=== PATIENT | female | born 1955 | race Caucasian/White ===

== ENCOUNTER 2017-11-18 13:56 | Emergency (ER) | payer SELFPAY ==
[~2017-11-18] VITALS: Ht 157.5 cm; Wt 79.4 kg
[2017-11-18 14:47] VITALS: BP 157/79
--- NOTE | 2017-11-18 14:52 | NUR ---
pt to lobby awaiting room for MSE. MARGO. ARIELA.
--- NOTE | 2017-11-18 17:01 | NUR ---
PATIENT AMBULATED TO BED 10
--- NOTE | 2017-11-18 17:17 | NUR ---
PATIENT PRESENTS TO ED WITH c/o bl lower abd pain since yesterday with n/v; pt reports 3-4 episodes of vomitting; pt denies any diarrhea;PT STATES SHE HAS BURNING SENSATION WHEN SHE PEE W/ URGENCY AND FREQUECY;HX OF HTN;SKIN IS PINK/WARM/DRY; AAOX4 WITH EVEN AND STEADY GAIT; LUNGS CLEAR BL; HR EVEN AND REGULAR; PT DENIES ANY FEVER, CP, SOB, OR COUGH AT THIS TIME; PATIENT STATES PAIN OF 10/10 AT THIS TIME;PATIENT POSITIONED FOR COMFORT; HOB ELEVATED; BEDRAILS UP X2; BED DOWN. ALL MONITORS IN PLACED;ER MD MADE AWARE OF PT STATUS.
[2017-11-18] MEDS ORDERED: KETOROLAC 30 MG/ML VIAL IVP ONE (17:40)
[2017-11-18] MEDS ORDERED: NACL 0.9% 500 ML IV ONE (17:40)
[2017-11-18] MEDS ORDERED: ONDANSETRON 4 MG/2 ML VIAL IVP ONE (17:40)
[2017-11-18 18:17] LABS: BASOPHILS # (AUTO) 0.1 K/uL (0.00-0.22); BASOPHILS % (AUTO) 1.7 % (0.0-2.0); EOSINOPHILS # (AUTO) 0.4 K/uL (0-0.4); EOSINOPHILS % (AUTO) 4.1 % (0.0-4.0); HEMATOCRIT 42.5 % (36-48); LYMPHOCYTES # (AUTO) 1.8 K/uL (2.5-16.5); LYMPHOCYTES % (AUTO) 20.3 % (20.5-51.1); MEAN CORPUSCULAR HEMOGLOBIN 30 pg (27-31); MEAN CORPUSCULAR HGB CONC 33 g/dL (33-37); MEAN CORPUSCULAR VOLUME 90 fL (80-94); MONOCYTES # (AUTO) 0.7 K/uL (0.8-1.0); MONOCYTES % (AUTO) 8.2 % (1.7-9.3); NEUTROPHILS # (AUTO) 5.7 K/uL (1.8-7.7); NEUTROPHILS % (AUTO) 65.7 % (42.2-75.2); PLATELET COUNT (AUTO) 358 K/uL (140-450); RED BLOOD CELL COUNT(AUTO) 4.74 MIL/uL (4.20-5.40); RED CELL DISTRIBUTION WIDTH 12.7 % (11.6-13.7); WHITE BLOOD COUNT (AUTO) 8.7 K/uL (4.8-10.8)
[2017-11-18 18:27] LABS: CARBON DIOXIDE 33.4 mmol/L (21-32); CREATININE 0.9 mg/dL (0.6-1.3); POTASSIUM 3.4 mmol/L (3.5-5.1)
[2017-11-18 18:33] LABS: ALBUMIN 4.3 g/dL (3.4-5.0); TOTAL BILIRUBIN 0.2 mg/dL (0.0-1.0)
[2017-11-18 18:47] LABS: PROTHROMBIN TIME 10.1 secs (10.8-13.4)
[2017-11-18] MEDS ORDERED: MORPHINE SULFATE 2 MG/ML SYR IVP ONE (18:55)
[2017-11-18 19:33] VITALS: BP 133/64
--- NOTE | 2017-11-18 19:33 | NUR ---
Patient discharged with v/s stable. Written and verbal after care instructions given and explained. Patient alert, oriented and verbalized understanding of instructions. Ambulatory with steady gait. All questions addressed prior to discharge. ID band removed. Patient advised to follow up with PMD. Rx of MOTRIN AND TRAMADOL given. Patient educated on indication of medication including possible reaction and side effects. Opportunity to ask questions provided and answered.
== END 2017-11-18 19:33 | disposition home or self-care (01) ==
LOC: MED 13:56
DX: K57.90 Diverticulosis of intestine, part unspecified, without perforation or abscess without bleeding (principal); I10 Essential (primary) hypertension
CPT/HCPCS: 36415; 74176; 80053; 85025; 85610; 85730; 96361; 96374; 96375; 99285; J1885; J2270; J2405; J7030

== ENCOUNTER 2020-01-03 04:31 | Inpatient (IN) | payer MEDICAID ==
[~2020-01-03] VITALS: Ht 154.9 cm; Wt 61.7 kg
[2020-01-03 04:35] VITALS: BP 155/84
--- NOTE | 2020-01-03 04:35 | NUR ---
TO BED #05 AMBULATORY
[2020-01-03] MEDS ORDERED: NACL 0.9% 500 ML IV SCH (05:01)
[2020-01-03] MEDS ORDERED: ONDANSETRON 4 MG/2 ML VIAL IVP ONE (05:05)
[2020-01-03] MEDS ORDERED: KETOROLAC 30 MG/ML VIAL IVP ONE (05:05)
[2020-01-03] MEDS ORDERED: MORPHINE SULFATE 2 MG/ML SYR IVP ONE (05:40)
--- NOTE | 2020-01-03 05:40 | NUR ---
PATIENT STILL STATING SEVERE HEAD PAIN AFTER TORADOL. DR. SHABAZZ MADE AWARE
--- NOTE | 2020-01-03 05:41 | NUR ---
BIB SON REPORTING HEADACHE FOR 1 WEEK WITH ABD PAIN, NAUSEA AND VOMITING. ABD SOFT AND NON-TENDER. NO COUGH REPORTED. LUNG SOUND CLEAR BILATERALLY. NO OTHER SYMPTOMS REPORTED. PATIENT AAO, CLEAR SPEECH, PUPILS EQUAL AND REACTIVE. HX: HTN-COMPLIANT WITH MEDICATION
[2020-01-03 05:58] LABS: APPEARANCE,URINE CLEAR (CLEAR); BILIRUBIN,URINE NEGATIVE (NEGATIVE); BLOOD, URINE NEGATIVE (NEGATIVE); COLOR,URINE YELLOW (YELLOW); LEUKOCYTE ESTERASE ,URINE NEGATIVE (NEGATIVE); NITRITE, URINE NEGATIVE (NEGATIVE); UGLUCOSE NEGATIVE (NEGATIVE)
[2020-01-03 05:59] LABS: ALBUMIN 3.9 g/dL (3.4-5.0); CARBON DIOXIDE 29.4 mmol/L (21-32); CREATININE 0.8 mg/dL (0.6-1.3); POTASSIUM 3.4 mmol/L (3.5-5.1); TOTAL BILIRUBIN 0.4 mg/dL (0.0-1.0)
[2020-01-03] MEDS ORDERED: diphenhydrAMINE 50 MG/ML VIAL IVP ONE (06:05)
[2020-01-03] MEDS ORDERED: PROCHLORPERAZINE 10 MG/2 ML VIAL IVP ONE (06:05)
[2020-01-03 06:10] LABS: BASOPHILS % (AUTO) 0.3 % (0.0-2.0); EOSINOPHILS # (AUTO) 0.1 K/uL (0-0.4); EOSINOPHILS % (AUTO) 1.2 % (0.0-4.0); HEMATOCRIT 36.8 % (36-48); HEMOGLOBIN 12.3 g/dL (12.0-16.0); LYMPHOCYTES # (AUTO) 1.4 K/uL (2.5-16.5); LYMPHOCYTES % (AUTO) 15.3 % (20.5-51.1); MEAN CORPUSCULAR HEMOGLOBIN 30 pg (27-31); MEAN CORPUSCULAR HGB CONC 33 g/dL (33-37); MEAN CORPUSCULAR VOLUME 90.5 fL (80-94); MONOCYTES # (AUTO) 0.4 K/uL (0.8-1.0); MONOCYTES % (AUTO) 4.6 % (1.7-9.3); NEUTROPHILS # (AUTO) 7.1 K/uL (1.8-7.7); NEUTROPHILS % (AUTO) 78.6 % (42.2-75.2); PLATELET COUNT (AUTO) 329 K/uL (140-450); PROTHROMBIN TIME 9.5 secs (10.8-13.4); RED BLOOD CELL COUNT(AUTO) 4.07 MIL/uL (4.20-5.40); RED CELL DISTRIBUTION WIDTH 13.5 % (11.6-13.7); WHITE BLOOD COUNT (AUTO) 9.1 K/uL (4.8-10.8)
[2020-01-03] MEDS ORDERED: LEVOFLOXACIN 500 MG/D5W PREMIX 100 ML IV ONE (07:49)
[2020-01-03] MEDS ORDERED: NACL 0.9% 1,000 ML IV SCH (10:43)
[2020-01-03] MEDS ORDERED: ACETAMINOPHEN 325 MG TAB PO PRN (10:45)
[2020-01-03] MEDS ORDERED: MORPHINE SULFATE 2 MG/ML SYR IVP PRN (10:45)
[2020-01-03] MEDS ORDERED: ONDANSETRON 4 MG/2 ML VIAL IM/IVP PRN (10:45)
[2020-01-03] MEDS ORDERED: DOCUSATE SODIUM 100 MG GELCAP PO PRN (10:45)
[2020-01-03] MEDS ORDERED: ALBUTEROL SULFATE/IPRATROPIU 3 ML SOL IH PRN (10:45)
--- NOTE | 2020-01-03 10:50 | NUR ---
Pt admitted to room 106B from ED via gurney. Able to amb to bed with steady gait. Received report from ED nurse Tramaine. Pt chilean speaking, requested to have son Danielito at bedside to translate chilean/libyan. Son able to speak and comprehend Setswana well. Left AC 20G IV intact with ongoing NS @ 120ml/h. Pt and son oriented to room and unit, able to verbalize understanding of teachings. Call light within reach.
--- NOTE | 2020-01-03 10:57 | NUR ---
Patient will be admitted to care of DR WONG. Admited to [facility]. Will go to room 106B. Belongings list completed. Report to EKATERINA VASQUES.
[2020-01-03] MEDS ORDERED: LACTULOSE 20 GM/30 ML UDC PO SCH (11:43)
[2020-01-03] MEDS: ALBUTEROL SULFATE/IPRATROPIU 3 ML SOL IH SCH ×2 (13:00→19:00)
[2020-01-03] MEDS: AZITHROMYCIN 250 MG in DEXTROSE 5% 250 ML IV SCH (13:32)
--- NOTE | 2020-01-03 13:45 | NUR ---
Received call from [employer] to confirm NPO status of pt. Informed tech that pt finished her lunch around 1330. Will keep pt NPO and tech to do NM Hida scan @ [phone] tonight. Instructed pt to remain NPO for Hida scan. Pt verbalized understanding and agree to be NPO.
[2020-01-03 15:27] LABS: CHOL/HDL RATIO 2.3 (1-4.5); FREE T4 (FREE THYROXINE) 1.23 ng/dL (0.76-1.46); MAGNESIUM 1.8 mg/dL (1.8-2.4); PHOSPHORUS 2.8 mg/dL (2.5-4.9); THYROID STIMULATING HORMONE 2.01 uIU/mL (0.34-3.74)
[2020-01-03 16:00] VITALS: BP 124/60
[2020-01-03] MEDS ORDERED: LACTULOSE 20 GM/30 ML UDC ONE (16:11)
[2020-01-03] MEDS: DEXT 5% / NACL 0.45% 1,000 ML IV SCH (16:15)
[2020-01-03] MEDS ORDERED: ORE25 PO (16:26)
[2020-01-03 16:41] LABS: PROTHROMBIN TIME 10.2 secs (10.8-13.4)
--- NOTE | 2020-01-03 18:00 | NUR ---
Pt left unit with NE tech for Hida scan, accompanied by fanny Esteves.
--- NOTE | 2020-01-03 19:05 | NUR ---
Report given to pm nurse Alma. Pt still at radiology for Hida scan.
--- NOTE | 2020-01-03 19:06 | NUR ---
RECEIVED REPORT FROM AM SHIFT NURSE CAPRICE. PATIENT IS OUT OF UNIT AT THIS TIME FOR HIDA SCAN.
--- NOTE | 2020-01-03 19:33 | NUR ---
HHN TX NOT GIVEN. PT IS OFF UNIT FOR TESTING. RN AWARE.
--- NOTE | 2020-01-03 19:48 | NUR ---
PATIENT RETURNED TO UNIT AT THIS TIME FROM HIDA SCAN VIA WHEELCHAIR. ASSISTED BY GABINO. PATIENT IS AMBULATORY. NO SOB OR DISTRESS NOTED. ON ROOM AIR. IV ACCESS ON LEFT AC 20 GAUGE, PATENT AND INTACT. BED IN LOW, SAFETY MEASURES IN PLACE. BOARD UPDATED. INITIAL ASSESSMENT DONE. CALL LIGHT PLACED WITHIN PATIENT REACH. WILL CONTINUE TO MONITOR PATIENT.
[2020-01-03] MEDS ORDERED: ATORVASTATIN 20 MG TAB PO SCH (21:00)
[2020-01-03] MEDS: HYDROcodone/APAP 7.5/325 MG 1 TAB PO PRN (21:14)
--- NOTE | 2020-01-03 22:12 | NUR ---
PATIENT RESTING COMFORTABLY IN BED WITH EYES CLOSED. VISIBLE CHEST RISE AND FALL. NO DISTRESS NOTED. CALL LIGHT PLACED WITHIN PATIENT REACH. ENDORSED TO ABE TOBAR FOR CONTINUITY OF CARE.
--- NOTE | 2020-01-03 22:13 | NUR ---
RECEIVED REPORT FROM CHETNA TOBAR. PATIENT IS AWAKE, ALERT, AND COOPERATIVE. RESPIRATION EVEN UNLABORED ON ROOM AIR. NO DISTRESS NOTED. SKIN IS WARM AND DRY. IV PATENT AND INTACT. PLAN OF CARE WAS DISCUSSED. ALL SAFETY MEASURES IN PLACE. BED IS AT LOW POSITION. CALL LIGHT WITHIN REACH. WILL CONTINUE TO MONITOR.
[2020-01-04] VITALS: BP 99/40
--- NOTE | 2020-01-04 | NUR ---
VITALS WERE TAKEN. PATIENT IN STABLE CONDITION. NO DISTRESS NOTED. WILL CONTINUE TO MONITOR.
--- NOTE | 2020-01-04 02:18 | NUR ---
CHECKED PATIENT. PATIENT SLEEPING RESPIRATION EVEN UNLABORED ON ROOM AIR. NO DISTRESS NOTED. WILL CONTINUE TO MONITOR.
[2020-01-04 04:00] VITALS: BP 117/59
--- NOTE | 2020-01-04 04:10 | NUR ---
VITALS WERE TAKEN. PATIENT IN STABLE CONDITION. NO DISTRESS NOTED. DENIES PAIN. WILL CONTINUE TO MONITOR.
[2020-01-04] MEDS: DEXT 5% / NACL 0.45% 1,000 ML IV SCH (04:19)
[2020-01-04 04:25] LABS: BARBITURATE, URINE NEG. ng/ml (NEG <=200); BENZODIAZEPINE, URINE NEG. ng/mL (NEG <=200); CANNABINOID, URINE NEG. ng/mL (NEG <=50); COCAINE, URINE NEG. ng/mL (NEG <=300); OPIATE, URINE POS. ng/mL (NEG <=2000); PHENCYCLIDINE SCREEN,URINE NEG. ng/mL (NEG <=25)
--- NOTE | 2020-01-04 06:45 | NUR ---
PATIENT COMPLAINED OF HEADACHE 6/. PRN PAIN MED ADMINISTER PER ORDER. WILL CONTINUE TO MONITOR.
[2020-01-04] MEDS: HYDROcodone/APAP 7.5/325 MG 1 TAB PO PRN (06:48)
[2020-01-04 07:01] LABS: BASOPHILS % (AUTO) 0.3 % (0.0-2.0); EOSINOPHILS # (AUTO) 0.3 K/uL (0-0.4); EOSINOPHILS % (AUTO) 3.1 % (0.0-4.0); HEMATOCRIT 34.4 % (36-48); HEMOGLOBIN 11.2 g/dL (12.0-16.0); LYMPHOCYTES # (AUTO) 1.7 K/uL (2.5-16.5); LYMPHOCYTES % (AUTO) 20.3 % (20.5-51.1); MEAN CORPUSCULAR HEMOGLOBIN 30 pg (27-31); MEAN CORPUSCULAR HGB CONC 33 g/dL (33-37); MEAN CORPUSCULAR VOLUME 92.1 fL (80-94); MONOCYTES # (AUTO) 0.5 K/uL (0.8-1.0); MONOCYTES % (AUTO) 6.5 % (1.7-9.3); NEUTROPHILS # (AUTO) 5.8 K/uL (1.8-7.7); NEUTROPHILS % (AUTO) 69.8 % (42.2-75.2); PLATELET COUNT (AUTO) 289 K/uL (140-450); RED BLOOD CELL COUNT(AUTO) 3.74 MIL/uL (4.20-5.40); RED CELL DISTRIBUTION WIDTH 13.6 % (11.6-13.7); WHITE BLOOD COUNT (AUTO) 8.3 K/uL (4.8-10.8)
--- NOTE | 2020-01-04 07:04 | NUR ---
ENDORSED PATIENT TO DAY SHIFT NURSE. PATIENT IS IN STABLE CONDITION.
--- NOTE | 2020-01-04 07:30 | NUR ---
SHIFT REPORT RECEIVED FROM COACH OPERATOR NURSE. PT IS IN BED ALERT AND AWAKE. NO COMPLAINS OF PAIN. CALL LIGHT IN REACH.
[2020-01-04] MEDS: ALBUTEROL SULFATE/IPRATROPIU 3 ML SOL IH SCH ×2 (07:32→13:10)
[2020-01-04 07:36] LABS: POTASSIUM 3.4 mmol/L (3.5-5.1)
[2020-01-04 07:37] LABS: ANION GAP 10.5 (8-16); CARBON DIOXIDE 29.9 mmol/L (21-32); CREATININE 0.8 mg/dL (0.6-1.3)
--- NOTE | 2020-01-04 07:45 | NUR ---
NOTIFIED DR LOCKHART OF LAB RESULTS GRAM POSITIVE COCCI OF BLOOD. PER DR LOCKHART IT MUST BE CONTAMINATED. NO NEED TO CHANGE ROOM. PT IS ON ANTIBIOTICS. NOTIFIED CHARGE NURSE.
[2020-01-04 08:00] VITALS: BP 129/65
--- NOTE | 2020-01-04 08:24 | NUR ---
PATIENT HAS BEEN SCREENED AND CATEGORIZED MODERATE NUTRITION RISK. PATIENT WILL BE SEEN WITHIN 3-5 DAYS OF ADMISSION. 01/05/20 01/07/[address]
[2020-01-04] MEDS ORDERED: LACTOBACILLUS RHAMNOSUS GG 1 EACH CAP PO SCH (09:00)
[2020-01-04] MEDS ORDERED: POTASSIUM CHLORIDE 10 MEQ TABER PO SCH (09:00)
[2020-01-04] MEDS ORDERED: ECOTRIN 81 MG TABEC PO SCH (09:00)
--- NOTE | 2020-01-04 09:21 | NUR ---
SPOKE WITH KAELA POWERHOUSE OPERATOR HE STATED SPOKE WITH DR. DELACRUZ HE STATED THE PATIENTS 0930 PROCEDURE HAS BEEN PLACED ON HOLD. WE ARE UNSURE OF WHY AT THIS TIME. WILL SPEAK WILL PATIENTS NURSE AND PT TO NOTIFY OF CHANGE PLAN
--- NOTE | 2020-01-04 09:30 | NUR ---
PT IS IN BED ALERT AND WAKE. NO COMPLAINS OF PAIN.NO DISTRESS NOTED. CALL LIGHT IN REACH.
[2020-01-04] MEDS ORDERED: INUL1CTB PO (10:13)
[2020-01-04] MEDS ORDERED: AMOX1TAB8 PO (10:13)
[2020-01-04] MEDS ORDERED: ATOR20TA PO (10:13)
[2020-01-04] MEDS ORDERED: ASPI-1718 PO (10:13)
--- NOTE | 2020-01-04 11:55 | NUR ---
PT IS IN BED ALERT AND WAKE. NO COMPLAINS OF PAIN.NO DISTRESS NOTED. CALL LIGHT IN REACH.
[2020-01-04 12:00] VITALS: BP 129/51
[2020-01-04] MEDS: AZITHROMYCIN 250 MG in DEXTROSE 5% 250 ML IV SCH (12:27)
--- NOTE | 2020-01-04 15:03 | NUR ---
PT WAS DISCHARGED TODAY. DISCHARGE INSTRUCTIONS GIVEN TO PATIENT. PT WILL FOLLOW UP WITH PCP AT [facility] ON THE OF THIS MONTH. APPOINTMENT SCHEDULE GIVEN TO PATIENT. PRESCRIPTION SENT TO PHARMACY. SKIN IN TACT. PT STABLE AT DISCHARGE. NO COMPLAINS OF PAIN. PT WALKED WITH STEADY GAIT HOWEVER PT WAS TAKEN IN WHEELCHAIR TO HER CAR ACCOMPANIED BY HER SON. IV REMOVED. CATHETER INTACT. ID BAND REMOVED. PT'S BELONGINGS WITH PATIENT.
[2020-01-04 16:09] LABS: T4 (THYROXINE) 8.6 ug/dL (4.5-12.0)
== END 2020-01-04 15:05 | disposition home or self-care (01) | DRG 46 ==
LOC: MED 04:31 → MTU 10:54
PROVIDERS: ADMIT General Practice; ATTEND General Practice
PROC: 05HY33Z Insertion of Infusion Device into Upper Vein, Percutaneous Approach (ICD-10-PCS; principal; 2020-01-03)
PROC: B54NZZA Ultrasonography of Left Upper Extremity Veins, Guidance (ICD-10-PCS; 2020-01-03)
DX: I65.21 Occlusion and stenosis of right carotid artery (principal); J18.9 Pneumonia, unspecified organism; K76.0 Fatty (change of) liver, not elsewhere classified; K80.20 Calculus of gallbladder without cholecystitis without obstruction; G90.8 Other disorders of autonomic nervous system; E66.3 Overweight; I10 Essential (primary) hypertension; K82.8 Other specified diseases of gallbladder; E87.6 Hypokalemia; K42.9 Umbilical hernia without obstruction or gangrene; Z82.49 Family history of ischemic heart disease and other diseases of the circulatory system; Z82.3 Family history of stroke; Z68.25 Body mass index [BMI] 25.0-25.9, adult
CPT/HCPCS: 36415; 70450; 71045; 76705; 78445; 80048; 80053; 80305; 81003; 82150; 83036; 83605; 83690; 83735; 83880; 84100; 84436; 84439; 84443; 84479; 84484; 85025; 85610; 85730; 87040; 87086; 87804; 93005; 93880; 94640; 96374; 96375; 97110; 97116; 97161-GP; 97530; 99285; J0456; J0696; J1885; J1956; J2270; J2405; J7060; J7620; Q0092

== ENCOUNTER 2020-01-14 19:31 | Inpatient (IN) | payer MEDICAID ==
[~2020-01-14] VITALS: Ht 160 cm; Wt 85.7 kg
[2020-01-14] MEDS: NACL 0.9% 1,000 ML IV SCH
[~2020-01-14 19:31] MED LIST: AMOX1TAB8 PO; ASPI-1822 PO; ATOR20TA PO; INUL1CTB PO; ORE25 PO
[2020-01-14 19:33] VITALS: BP 149/52
--- NOTE | 2020-01-14 19:33 | NUR ---
TO BED # 11 AMBULATORY
--- NOTE | 2020-01-14 20:00 | NUR ---
PT VOMITING AT BEDSIDE. 30 ML CLEAR BILE NOTED TO EMESIS BAG. DR. MA MADE AWARE.
[2020-01-14] MEDS ORDERED: ONDANSETRON 4 MG/2 ML VIAL IVP ONE (20:15)
[2020-01-14] MEDS ORDERED: FAMOTIDINE 20 MG/2 ML VIAL IVP ONE (20:15)
[2020-01-14] MEDS ORDERED: NACL 0.9% 1,000 ML IV ONE (20:15)
--- NOTE | 2020-01-14 20:30 | NUR ---
LABS DRAWN AT BEDSIDE BY PRIMARY RN.
--- NOTE | 2020-01-14 20:40 | NUR ---
ADMINISTERED 20 MG IVP PEPCID AND 4 MG IVP ZOFRAN FOR N/V AND 10/10 LOWER ABD PAIN. WILL REASSESS.
--- NOTE | 2020-01-14 21:00 | NUR ---
PT REPORTS MODERATE PAIN RELIEF; 6/10. REPORTS RELIEF OF N/V.
[2020-01-14 21:24] LABS: BASOPHILS # (AUTO) 0.1 K/uL (0.00-0.22); BASOPHILS % (AUTO) 0.7 % (0.0-2.0); EOSINOPHILS # (AUTO) 0.5 K/uL (0-0.4); EOSINOPHILS % (AUTO) 5.6 % (0.0-4.0); HEMATOCRIT 37.3 % (36-48); HEMOGLOBIN 12.3 g/dL (12.0-16.0); LYMPHOCYTES # (AUTO) 2.1 K/uL (2.5-16.5); LYMPHOCYTES % (AUTO) 21.5 % (20.5-51.1); MEAN CORPUSCULAR HEMOGLOBIN 30 pg (27-31); MEAN CORPUSCULAR HGB CONC 33 g/dL (33-37); MEAN CORPUSCULAR VOLUME 90.4 fL (80-94); MONOCYTES # (AUTO) 0.7 K/uL (0.8-1.0); MONOCYTES % (AUTO) 7.5 % (1.7-9.3); NEUTROPHILS # (AUTO) 6.3 K/uL (1.8-7.7); NEUTROPHILS % (AUTO) 64.7 % (42.2-75.2); PLATELET COUNT (AUTO) 324 K/uL (140-450); RED BLOOD CELL COUNT(AUTO) 4.12 MIL/uL (4.20-5.40); RED CELL DISTRIBUTION WIDTH 13.8 % (11.6-13.7); WHITE BLOOD COUNT (AUTO) 9.7 K/uL (4.8-10.8)
[2020-01-14 21:39] LABS: ANION GAP 9.7 (8-16); CARBON DIOXIDE 30.5 mmol/L (21-32); CREATININE 0.7 mg/dL (0.6-1.3); POTASSIUM 4.2 mmol/L (3.5-5.1); TOTAL BILIRUBIN 0.2 mg/dL (0.0-1.0)
[2020-01-14] MEDS ORDERED: fentaNYL 0.05 MG/ML VIAL IM ONE (21:45)
--- NOTE | 2020-01-14 21:55 | NUR ---
MEDICATED WITH 0.05 MG IVP FENTANYL FOR 7/10 LOWER ABD PAIN. WILL REASSESS.
--- NOTE | 2020-01-14 22:15 | NUR ---
PT REPORTS MODERATE PAIN RELIEF; 6/10. PT RESTING WITH VSS AND EYES CLOSED. AROUSABLE TO VERBAL STIMULI.
[2020-01-14 22:32] LABS: APPEARANCE,URINE CLEAR (CLEAR); BILIRUBIN,URINE NEGATIVE (NEGATIVE); BLOOD, URINE 2+ (NEGATIVE); COLOR,URINE YELLOW (YELLOW); LEUKOCYTE ESTERASE ,URINE 1+ (NEGATIVE); NITRITE, URINE NEGATIVE (NEGATIVE); UGLUCOSE NEGATIVE (NEGATIVE)
[2020-01-14 23:05] LABS: RBC,URINE 0-5 /HPF (0-5); YEAST,URINE Few /HPF (None Seen)
[2020-01-14] MEDS ORDERED: DOCUSATE SODIUM 100 MG GELCAP PO PRN (23:05)
[2020-01-14] MEDS ORDERED: HYDROcodone/APAP 5/325 MG 1 TAB TAB PO PRN (23:05)
[2020-01-14] MEDS ORDERED: ACETAMINOPHEN 325 MG TAB PO PRN (23:05)
[2020-01-14] MEDS ORDERED: MORPHINE SULFATE 2 MG/ML SYR IVP PRN (23:05)
[2020-01-14] MEDS ORDERED: ONDANSETRON 4 MG/2 ML VIAL IM/IVP PRN (23:05)
--- NOTE | 2020-01-14 23:05 | NUR ---
PT RESTING IN BED. REPORTS "SEVERE PAIN", 09/01. DR. VELARDE MADE AWARE.
[2020-01-14] MEDS: DOCUSATE SODIUM 100 MG GELCAP PO SCH (23:45)
[2020-01-14] MEDS ORDERED: FLUCONAZOLE 100 MG TAB PO ONE (23:45)
[2020-01-14] MEDS ORDERED: BISACODYL 10 MG SUPP RC ONE (23:45)
[2020-01-14] MEDS ORDERED: MAG SULF 2000 MG/WATER PREMIX 50 ML IV ONE (23:45)
--- NOTE | 2020-01-14 23:54 | NUR ---
RECEIVED PATIENT FROM ER VIA WHEELCHAIR. PATIENT IS OCCITAN SPEAKING ONLY. RESPIRATIONS EVEN, UNLABORED. PATIENT C/O MILD PAIN 2/10, TOLERABLE AT THIS TIME. IV SITE NOTED TO LEFT AC 20G, PATENT/INTACT. ABDOMEN SOFT, TENDER UPON PALPATION. BOWEL SOUNDS ACTIVE X4 QUADRANTS. PATIENT IS AMBULATORY. SKIN ASSESSMENT COMPLETE. SKIN IS CLEAN/DRY/INTACT. MRSA SCREEN COMPLETED. PATIENT ORIENTED TO ROOM, STAFF AND CALL LIGHT. NO S/SX ACUTE DISTRESS NOTED. CALL LIGHT WITHIN REACH. WILL CONTINUE TO MONITOR.
--- NOTE | 2020-01-14 23:55 | NUR ---
Patient will be admitted to care of . Admited to [facility]. Will go to room 105B. Belongings list completed. Report to EKATERINA Dowd.
[2020-01-14 23:57] LABS: BARBITURATE, URINE NEG. ng/ml (NEG <=200); BENZODIAZEPINE, URINE NEG. ng/mL (NEG <=200); CANNABINOID, URINE NEG. ng/mL (NEG <=50); COCAINE, URINE NEG. ng/mL (NEG <=300); OPIATE, URINE NEG. ng/mL (NEG <=2000); PHENCYCLIDINE SCREEN,URINE NEG. ng/mL (NEG <=25)
[2020-01-15 00:01] LABS: CHOL/HDL RATIO 3.4 (1-4.5); MAGNESIUM 1.7 mg/dL (1.8-2.4); PHOSPHORUS 3.3 mg/dL (2.5-4.9)
--- NOTE | 2020-01-15 00:15 | NUR ---
PT CHECKED ON THE BM; STILL NOT CLEAR. PT AMBULATING WELL TO THE BATHROOM STEADY GAIT Addendum: 01/16/20 at 0656 by Shyanne Helm RN KING OLSEN
[2020-01-15 00:20] LABS: PROTHROMBIN TIME 9.7 secs (10.8-13.4)
--- NOTE | 2020-01-15 00:34 | NUR ---
SPOKE TO DAUGHTER JUAN ON THE PHONE ABOUT HER MOTHER'S CONDITION. DAUGHTER SAID THAT SHE WOULD BE VISITING IN THE MORNING TO SEE HER MOM. RELAYED MESSAGE TO PATIENT. PATIENT IS IN BED, COMFORTABLY. NO C/O PAIN. NO S/SX ACUTE DISTRESS. CALL LIGHT WITHIN REACH. WILL CONTINUE TO MONITOR.
--- NOTE | 2020-01-15 01:26 | NUR ---
PATIENT RESTING COMFORTABLY IN BED. NO C/O PAIN. NO S/SX ACUTE DISTRESS. CALL LIGHT WITHIN REACH. WILL CONTINUE TO MONITOR.
[2020-01-15 01:48] VITALS: BP 134/74
[2020-01-15] MEDS ORDERED: cefTRIAXone 1,000 MG VIAL ONE (03:11)
--- NOTE | 2020-01-15 03:32 | NUR ---
PATIENT RESTING IN BED WITH EYES CLOSED. CONTINUES IN STABLE CONDITION. NO C/O PAIN. NO S/SX ACUTE DISTRESS. CALL LIGHT WITHIN REACH. WILL CONTINUE TO MONITOR.
--- NOTE | 2020-01-15 04:31 | NUR ---
PATIENT C/O 5/10 ACHING ABDOMINAL PAIN WITH HEADACHE. MEDICATED ORDERED. CALL LIGHT WITHIN REACH. WILL CONTINUE TO MONITOR.
--- NOTE | 2020-01-15 05:31 | NUR ---
REASSESSED PATIENT'S PAIN LEVEL, PATIENT DENIES ANY PAIN. NO S/SX ACUTE DISTRESS. CALL LIGHT WITHIN REACH. WILL CONTINUE TO MONITOR.
--- NOTE | 2020-01-15 07:15 | NUR ---
RECEIVED BEDSIDE REPORT FROM DRIVE IN THEATER ATTENDANT NURSE, PT IS ASLEEP, NO S/S OF DISTRESS NOTED, ON ROOM AIR, SKIN INTACT. PT IS AMBULATORY. OCCITAN SPEAKING ONLY. IV SITE L AC 20 G INFUSING NS 60 ML/HR. PT IS AWARE THAT WE NEED A STOOL SAMPLE FOR OCCULT BLOOD, AND HAT IS ON THE TOILET. CALL LIGHT IS WITHIN REACH. WILL CONTINUE TO MONITOR.
[2020-01-15 08:00] VITALS: BP 131/60
[2020-01-15 08:30] LABS: BASOPHILS % (AUTO) 0.5 % (0.0-2.0); EOSINOPHILS # (AUTO) 0.4 K/uL (0-0.4); HEMATOCRIT 34.6 % (36-48); HEMOGLOBIN 11.5 g/dL (12.0-16.0); LYMPHOCYTES # (AUTO) 1.5 K/uL (2.5-16.5); MEAN CORPUSCULAR HEMOGLOBIN 30 pg (27-31); MEAN CORPUSCULAR HGB CONC 33 g/dL (33-37); MEAN CORPUSCULAR VOLUME 89.4 fL (80-94); MONOCYTES # (AUTO) 0.4 K/uL (0.8-1.0); MONOCYTES % (AUTO) 5.8 % (1.7-9.3); NEUTROPHILS # (AUTO) 4.1 K/uL (1.8-7.7); NEUTROPHILS % (AUTO) 63.7 % (42.2-75.2); PLATELET COUNT (AUTO) 287 K/uL (140-450); RED BLOOD CELL COUNT(AUTO) 3.87 MIL/uL (4.20-5.40); RED CELL DISTRIBUTION WIDTH 14.1 % (11.6-13.7); WHITE BLOOD COUNT (AUTO) 6.4 K/uL (4.8-10.8)
[2020-01-15] MEDS: DOCUSATE SODIUM 100 MG GELCAP PO SCH ×2 (08:53→21:26)
[2020-01-15 08:54] LABS: ANION GAP 12.1 (8-16); CREATININE 0.9 mg/dL (0.6-1.3); POTASSIUM 4.1 mmol/L (3.5-5.1)
[2020-01-15] MEDS: LACTOBACILLUS RHAMNOSUS GG 1 EACH CAP PO SCH (08:54)
[2020-01-15] MEDS: HYDROCHLOROTHIAZIDE 25 MG TAB PO SCH (08:54)
[2020-01-15] MEDS: PANTOPRAZOLE 40 MG INJ VIAL IVP SCH (08:54)
[2020-01-15 08:58] LABS: MAGNESIUM 2.4 mg/dL (1.8-2.4); PHOSPHORUS 2.9 mg/dL (2.5-4.9)
--- NOTE | 2020-01-15 09:00 | NUR ---
AM MEDS ADMINISTERED, PT TOLERATED WELL. ADMINISTERED PRN TYLENOL FOR C/O HEADACHE. WILL REASSESS PT WITHIN AN HOUR.
[2020-01-15] MEDS ORDERED: DICYCLOMINE HCL LIQUID 10 MG/5 ML UDC PO SCH (10:00)
[2020-01-15] MEDS ORDERED: LIDOCAINE VISCOUS 2% 20 ML UDC PO SCH (10:00)
[2020-01-15] MEDS ORDERED: SODIUM PHOSPHATE 118 ML ENEM RC SCH (10:00)
[2020-01-15] MEDS ORDERED: ALUMINUM HYD/MAG/SIMETHICONE 30 ML UDC PO SCH (10:00)
--- NOTE | 2020-01-15 10:42 | NUR ---
GI COCKTAIL ADMINISTERED FOR UPSET STOMACH PER MD ORDER, IV ZOFRAN GIVEN FOR C/O NAUSEA. DAUGHTER IS VISITING AT BEDSIDE.
[2020-01-15] MEDS ORDERED: BOWEL EVACUANT DRINK 4,000 ML PDS PO SCH (11:00)
--- NOTE | 2020-01-15 11:04 | NUR ---
GOLYTELY PROVIDED FOR PT. INSTRUCTED PT TO DRINK THE GOLYTELY SOLUTION LITTLE BY LITTLE THROUGHOUT THE DAY, BUT THAT SHE NEEDS TO FINISH THE ENTIRE BOTTLE. PT VERBALIZED UNDERSTANDING.
--- NOTE | 2020-01-15 12:18 | NUR ---
REMINDED PT TO KEEP DRINKING GOLYTELY. SHE HAS NOT MADE MUCH PROGRESS SINCE BEGINNING TO DRINK IT.
[2020-01-15] MEDS: NACL 0.9% 1,000 ML IV SCH (15:42)
[2020-01-15 16:00] VITALS: BP 130/63
--- NOTE | 2020-01-15 16:59 | NUR ---
PT HAD A VERY SMALL SOFT BM, SAMPLE WAS COLLECTED FOR HEMOCCULT TEST AND TAKEN TO LAB. Addendum: 01/15/20 at 1858 by Juliette Conley RN HEMOCCULT IS NEGATIVE
[2020-01-15] MEDS: DEXT 5% / NACL 0.9% 500 ML IV SCH (17:15)
--- NOTE | 2020-01-15 17:21 | NUR ---
PT STATES THAT SHE IS HUNGRY, THAT SHE HASN'T EATEN SINCE YESTERDAY, AND THAT SHE WOULD LIKE AT LEAST A JELLO. (SHE HAD A CLEAR LIQUID BREAKFAST THIS AM). I ENCOURAGED PT TO KEEP DRINKING HER GOLYTELY PER MD ORDER, WE NEED HER BOWEL COMPLETELY EMPTY FOR COLONOSCOPY TOMORROW. PT ALSO MADE AWARE THAT SHE WILL HAVE MAG CITRATE TO DRINK LATER ON.
[2020-01-15] MEDS ORDERED: BOWEL EVACUANT DRINK 4,000 ML PDS PO ONE (17:55)
--- NOTE | 2020-01-15 17:58 | NUR ---
CONSENT OBTAINED BY PHONE FROM PT'S DAUGHTER FOR COLONOSCOPY TOMORROW, CONSENT VERIFIED BY EKATERINA COMBS.
[2020-01-15] MEDS ORDERED: MAGNESIUM CITRATE 300 ML BTL PO SCH (18:00)
--- NOTE | 2020-01-15 18:13 | NUR ---
PROVIDED PT MAG CITRATE. I REITERATED TO HER THAT SHE NEEDS TO ACTIVELY DRINK HER BOWEL PREP LIQUIDS. PT HAS NOT MADE A LOT OF PROGRESS IN HER GOLYTELY CONSUMPTION. PT VERBALIZED UNDERSTANDING. PT AWARE THAT SHE NEEDS TO DRINK THESE LIQUIDS TO CLEAN OUT HER BOWEL FOR COLONOSCOPY TOMORROW.
--- NOTE | 2020-01-15 19:20 | NUR ---
PT ENDORSED TO HOTEL SALES MANAGER NURSE IN STABLE CONDITION.
--- NOTE | 2020-01-15 19:21 | NUR ---
RECEIVED BEDSIDE REPORT FROM AM SHIFT NURSE, PT IS ASLEEP, NO S/S OF DISTRESS NOTED, ON ROOM AIR, SKIN INTACT. PT IS AMBULATORY. GUYANESE SPEAKING ONLY.PT IS ON GOLYTELY STILL TRYING TO FINISH AND MAG CITRATE. IV SITE L AC 20 G INFUSING NS 60 ML/HR. . CALL LIGHT IS WITHIN REACH. WILL CONTINUE TO MONITOR.
[2020-01-15] MEDS ORDERED: BOWEL EVACUANT DRINK 4,000 ML PDS ONE (20:33)
[2020-01-15] MEDS ORDERED: ATORVASTATIN 20 MG TAB PO SCH (21:00)
--- NOTE | 2020-01-15 22:30 | NUR ---
PT ENCOURAGED TO DRINK THE GOLYTELY, USING THE MOBILE THERAPIST PT VERBALIZED UNDERSTANDING
--- NOTE | 2020-01-15 23:02 | NUR ---
CHECKED ON PATIENT'S PT HAD A BM, PATIENT'S STOOL NOT CLEAR. ENCOURAGED TO DRINK FINISH THE GOLYTELY.
[2020-01-16] VITALS: BP 125/62
--- NOTE | 2020-01-16 00:15 | NUR ---
PT CHECKED ON THE BM; STILL NOT CLEAR. PT AMBULATING WELL TO THE BATHROOM STEADY GAIT
[2020-01-16] MEDS: DEXT 5% / NACL 0.9% 500 ML IV SCH ×2 (01:35→09:10)
--- NOTE | 2020-01-16 02:45 | NUR ---
PT SLEEPING BUT STILL W/ GOLYTELY WILL CONTINUE TO MONITOR STOOL AND ENCOURAGED TO DRINK THE REMAINING GOLYTELY
--- NOTE | 2020-01-16 04:16 | NUR ---
PT SLEEPING, NO RESPIRATORY DISTRESS NO COMPLAINTS OF PAIN
--- NOTE | 2020-01-16 05:30 | NUR ---
PT WENT TO THE BATHROOM AND CHECKED ON STOOL; STILL BROWNISH IN COLOR ,BUT W/ MINIMAL SMALL PARTICLES); NOT CLEAR YET. INFORMED DR. LOCKHART
[2020-01-16] MEDS ORDERED: BOWEL EVACUANT DRINK 4,000 ML PDS PO SCH (06:10)
--- NOTE | 2020-01-16 06:58 | NUR ---
PT A, AO X 4, AMBULATORY. PT STABLE AT THIS TIME WILL ENDORSE TO NEXT SHIFT
--- NOTE | 2020-01-16 07:06 | NUR ---
RECEIVED PATIENT FROM SURVEY RESEARCH CENTER DIRECTOR NURSE FOR CONTINUITY OF CARE. PATIENT IS AWAKE, DANISH SPEAKING ONLY. RESPIRATIONS EVEN AND UNLABORED, ON ROOM AIR. VISIBLE CHEST RISE NOTED. MED-SURG. ABDOMEN ROUND, SOFT, AND NONTENDER. BOWEL PREP AT BEDSIDE. ENCOURAGED PATIENT TO DRINK BOWEL PREP. BM IS ALMOST CLEAR, YELLOW WITH PARTICLES. THERE IS A SCHEDULED COLONOSCOPY TODAY. CONSENT SIGNED. SKIN WARM, DRY, AND INTACT. IV IN THE RIGHT HAND G20 RUNNING H5NS AT 60 ML/HR. IV PATENT AND FLUSHING WELL. PATIENT IS AMBULATORY. UNIVERSAL FALL PRECAUTIONS. BED IN LOW POSITION. CALL LIGHT IS WITHIN REACH. WILL CONTINUE TO MONITOR.
[2020-01-16 07:15] LABS: BASOPHILS % (AUTO) 0.7 % (0.0-2.0); EOSINOPHILS # (AUTO) 0.4 K/uL (0-0.4); EOSINOPHILS % (AUTO) 6.2 % (0.0-4.0); HEMATOCRIT 36.3 % (36-48); HEMOGLOBIN 12.2 g/dL (12.0-16.0); LYMPHOCYTES # (AUTO) 1.3 K/uL (2.5-16.5); MEAN CORPUSCULAR HEMOGLOBIN 30 pg (27-31); MEAN CORPUSCULAR HGB CONC 34 g/dL (33-37); MEAN CORPUSCULAR VOLUME 89.2 fL (80-94); MONOCYTES # (AUTO) 0.3 K/uL (0.8-1.0); MONOCYTES % (AUTO) 5.1 % (1.7-9.3); NEUTROPHILS # (AUTO) 4.1 K/uL (1.8-7.7); PLATELET COUNT (AUTO) 306 K/uL (140-450); RED BLOOD CELL COUNT(AUTO) 4.07 MIL/uL (4.20-5.40); RED CELL DISTRIBUTION WIDTH 13.8 % (11.6-13.7); WHITE BLOOD COUNT (AUTO) 6.2 K/uL (4.8-10.8)
[2020-01-16 07:49] LABS: ANION GAP 11.2 (8-16); CARBON DIOXIDE 30.6 mmol/L (21-32); CREATININE 0.8 mg/dL (0.6-1.3); POTASSIUM 3.8 mmol/L (3.5-5.1)
[2020-01-16 07:57] LABS: MAGNESIUM 2.2 mg/dL (1.8-2.4); PHOSPHORUS 2.6 mg/dL (2.5-4.9)
[2020-01-16 08:00] VITALS: BP 133/53
[2020-01-16] MEDS: DOCUSATE SODIUM 100 MG GELCAP PO SCH (08:19)
[2020-01-16] MEDS: HYDROCHLOROTHIAZIDE 25 MG TAB PO SCH (08:20)
[2020-01-16] MEDS: LACTOBACILLUS RHAMNOSUS GG 1 EACH CAP PO SCH (08:20)
[2020-01-16] MEDS: PANTOPRAZOLE 40 MG INJ VIAL IVP SCH (08:20)
--- NOTE | 2020-01-16 08:20 | NUR ---
GIVEN MORNING MEDICATIONS PO SCHEDULED. EXPLAINED TO PATIENT AND DAUGHTER MEDICATION AND SIDE EFFECTS. THEY BOTH VERBALIZED UNDERSTANDING. HANG NEW IV BAG OF D5NS AT 60 ML/HR. BED IN LOW POSITION. CALL LIGHT IS WITHIN REACH. WILL CONTINUE OT MONITOR
--- NOTE | 2020-01-16 08:36 | NUR ---
PATIENT HAS BEEN SCREENED AND CATEGORIZED MODERATE NUTRITION RISK. PATIENT WILL BE SEEN WITHIN 3-5 DAYS OF ADMISSION. 01/17/20 01/19/[address]
--- NOTE | 2020-01-16 10:33 | NUR ---
JESSICA BROOKS CALLED. INFORMED DR REGARDING PATIENT'S BM AND THAT CONSENT IS SIGNED
--- NOTE | 2020-01-16 10:38 | NUR ---
INFORMED AND ENCOURAGE PATIENT TO DRINK THE BOWEL PREP. VERBALIZED UNDERSTANDING. DAUGHTER AT BEDSIDE
--- NOTE | 2020-01-16 11:19 | NUR ---
DISCHARGE PLANNING: THIS IS A 64 Y/O FEMALE PATIENT FROM HOME, WHO CAME IN DUE TO BLOOD IN HER STOOL. PAST MEDICAL HISTORY INCLUDE ESSENTIAL HTN, CHOLELITHIASIS AND DYSLIPIDEMIA. INITIAL DIAGNOSIS OF GI BLEED. CURRENT LABS INCLUDE WBC 6.2, H/H 12.2/36.3, NA/K 143/3.8, BUN/CREA 7/0.8. ON ROCEPHIN. GI CONSULT WITH DR. LOPEZ IN PLACE. FOR COLONOSCOPY TODAY, ON BOWEL PREP WITH GOLYTELY. DC PLAN BACK TO HOME ONCE STABLE.
[2020-01-16] MEDS ORDERED: MIDAZOLAM 2 MG/2 ML VIAL ONE (12:19)
[2020-01-16] MEDS ORDERED: fentaNYL 0.05 MG/ML VIAL ONE (12:19)
[2020-01-16] MEDS ORDERED: diphenhydrAMINE 50 MG/ML VIAL ONE (12:19)
--- NOTE | 2020-01-16 12:40 | NUR ---
PATIENT OFF UNIT FOR COLONOSCOPY
[2020-01-16] MEDS: MIDAZOLAM 2 MG/2 ML VIAL IVP ONE ×2 (13:42→14:17)
[2020-01-16] MEDS: fentaNYL 0.05 MG/ML VIAL IVP ONE ×2 (13:43→14:17)
[2020-01-16] MEDS ORDERED: DEXT 5% /NACL 0.9% 1,000 ML IV SCH (14:10)
--- NOTE | 2020-01-16 14:20 | NUR ---
PATIENT IS BACK FROM OR. WILL CHECK BP
[2020-01-16] MEDS ORDERED: MIRABULK PO (15:31)
[2020-01-16 15:32] VITALS: BP 121/74
--- NOTE | 2020-01-16 15:36 | NUR ---
PATIENT REQUESTED [facility]OR[facility]. WILL CALL [facility]
[2020-01-16] MEDS ORDERED: CEPH500C16 PO (15:47)
[2020-01-16] MEDS ORDERED: INUL1CTB PO (15:48)
[2020-01-16 16:00] VITALS: BP 126/60
--- NOTE | 2020-01-16 16:35 | NUR ---
PATIENT REQUESTED TO TALK TO DR. TAPIA. WILL INFORM
--- NOTE | 2020-01-16 17:49 | NUR ---
GIVEN DISCHARGE INSTRUCTIONS TO THE PATIENT AND SON. USED [employer] ANALYTICS ASSOCIATE SAMARIA #[id number]. EXPLAINED TO PATIENT THAT SHE HAS DR. DAVID WITH [facility] AT 01/19 AT 2:40PM. EXPLAINED THAT THERE'S NEW MEDICATIONS ORDERED. EXPLAINED TO PATIENT THAT TO PREVENT CONSTIPATION, SHE NEEDS TO EXERCISE FOR AT LEAST 30 MINS AND THE EAT HIGH FIBER DIET AND LOW FAT DIET. PATIENT AND SON VERBALIZED UNDERSTANDING. NO FURTHER QUESTIONS. PATIENT WILL EAT DINNER FIRST
[2020-01-16] MEDS ORDERED: INFLUENZA VACCINE QUAD 0.5 ML SYR IMVAC PRN (17:55)
--- NOTE | 2020-01-16 17:59 | NUR ---
GIVEN INFLUENZA VACCINE IM IN THE LEFT DELTOID. EXPLAINED TO PATIENT MED. PATIENT AND SON VERBALIZED UNDERSTANDING. WILL REMOVE IV AND ID BAND FOR DISCHARGE
--- NOTE | 2020-01-16 18:23 | NUR ---
DISCONTINUED IV AND REMOVED ID BAND. PATIENT IS GOING TO GET DRESSED
--- NOTE | 2020-01-16 18:25 | NUR ---
DISCHARGED PATIENT VIA WHEELCHAIR. SON, AUREA, PICKED UP THE PATIENT.
[2020-01-17] MEDS ORDERED: PSYLLIUM 12.2 GM/PKT PO SCH (09:00)
== END 2020-01-16 18:25 | disposition home or self-care (01) | DRG 254 ==
LOC: MED 19:31 → MTU 23:15
PROVIDERS: ADMIT General Practice; ATTEND General Practice
PROC: 0DBL8ZX Excision of Transverse Colon, Via Natural or Artificial Opening Endoscopic, Diagnostic (ICD-10-PCS; 2020-01-16)
PROC: 0DBN8ZX Excision of Sigmoid Colon, Via Natural or Artificial Opening Endoscopic, Diagnostic (ICD-10-PCS; 2020-01-16)
PROC: 0DBF8ZX Excision of Right Large Intestine, Via Natural or Artificial Opening Endoscopic, Diagnostic (ICD-10-PCS; 2020-01-16)
PROC: 0DBG8ZX Excision of Left Large Intestine, Via Natural or Artificial Opening Endoscopic, Diagnostic (ICD-10-PCS; 2020-01-16)
PROC: 0DBB8ZX Excision of Ileum, Via Natural or Artificial Opening Endoscopic, Diagnostic (ICD-10-PCS; 2020-01-16)
PROC: 3E02340 Introduction of Influenza Vaccine into Muscle, Percutaneous Approach (ICD-10-PCS; 2020-01-16)
PROC: 0DBH8ZX Excision of Cecum, Via Natural or Artificial Opening Endoscopic, Diagnostic (ICD-10-PCS; principal; 2020-01-16 12:45)
DX: K64.8 Other hemorrhoids (principal); E83.42 Hypomagnesemia; K80.20 Calculus of gallbladder without cholecystitis without obstruction; B37.49 Other urogenital candidiasis; E66.9 Obesity, unspecified; K62.5 Hemorrhage of anus and rectum; E78.5 Hyperlipidemia, unspecified; R31.9 Hematuria, unspecified; I10 Essential (primary) hypertension; Z79.899 Other long term (current) drug therapy; Z79.82 Long term (current) use of aspirin; Z98.49 Cataract extraction status, unspecified eye; Z82.3 Family history of stroke; Z82.49 Family history of ischemic heart disease and other diseases of the circulatory system; Z68.33 Body mass index [BMI] 33.0-33.9, adult; Z23 Encounter for immunization
CPT/HCPCS: 36415; 80048; 80053; 80305; 81001; 82150; 82272; 83615; 83690; 83735; 83880; 84100; 84484; 84703; 85025; 85610; 85730; 87081; 87086; 93005; 96361; 96374; 96375; 99285; C9113; J0696; J1200; J2250; J2405; J3010; J3475; J3490; J7030; J7042; J7060; Q9967

== ENCOUNTER 2020-09-16 10:20 | Emergency (ER) | payer MEDICAID ==
[~2020-09-16] VITALS: Ht 160 cm; Wt 86.2 kg
[~2020-09-16 10:20] MED LIST changes: -AMOX1TAB8 PO; +CEPH500C16 PO; +MIRABULK PO
[2020-09-16 10:25] VITALS: BP 152/83
[2020-09-16] MEDS ORDERED: ONDANSETRON 4 MG/2 ML VIAL IVP STA (10:51)
[2020-09-16] MEDS ORDERED: NACL 0.9% 1,000 ML IV ONE (10:55)
[2020-09-16] MEDS ORDERED: MORPHINE SULFATE 4 MG/ML SYR IVP SCH (11:30)
[2020-09-16 11:36] LABS: BASOPHILS # (AUTO) 0.1 K/uL (0.00-0.22); BASOPHILS % (AUTO) 0.6 % (0.0-2.0); EOSINOPHILS # (AUTO) 0.2 K/uL (0-0.4); EOSINOPHILS % (AUTO) 2.6 % (0.0-4.0); HEMATOCRIT 37.3 % (36-48); HEMOGLOBIN 12.7 g/dL (12.0-16.0); LYMPHOCYTES # (AUTO) 1.4 K/uL (2.5-16.5); LYMPHOCYTES % (AUTO) 15.6 % (20.5-51.1); MEAN CORPUSCULAR HEMOGLOBIN 30 pg (27-31); MEAN CORPUSCULAR HGB CONC 34 g/dL (33-37); MEAN CORPUSCULAR VOLUME 89.6 fL (80-94); MONOCYTES # (AUTO) 0.5 K/uL (0.8-1.0); MONOCYTES % (AUTO) 5.1 % (1.7-9.3); NEUTROPHILS # (AUTO) 6.9 K/uL (1.8-7.7); NEUTROPHILS % (AUTO) 76.1 % (42.2-75.2); PLATELET COUNT (AUTO) 342 K/uL (140-450); RED BLOOD CELL COUNT(AUTO) 4.17 MIL/uL (4.20-5.40); RED CELL DISTRIBUTION WIDTH 13.4 % (11.6-13.7)
[2020-09-16 11:38] LABS: APPEARANCE,URINE CLEAR (CLEAR); BILIRUBIN,URINE NEGATIVE (NEGATIVE); BLOOD, URINE NEGATIVE (NEGATIVE); COLOR,URINE YELLOW (YELLOW); LEUKOCYTE ESTERASE ,URINE NEGATIVE (NEGATIVE); NITRITE, URINE NEGATIVE (NEGATIVE); UGLUCOSE NEGATIVE (NEGATIVE)
[2020-09-16 11:59] LABS: ALBUMIN 4.1 g/dL (3.4-5.0); ANION GAP 13.3 (8-16); CARBON DIOXIDE 28.5 mmol/L (21-32); POTASSIUM 3.8 mmol/L (3.5-5.1); TOTAL BILIRUBIN 0.4 mg/dL (0.0-1.0)
[2020-09-16 13:51] VITALS: BP 142/79
== END 2020-09-16 13:51 | disposition home or self-care (01) ==
LOC: MED 10:20
DX: R10.31 Right lower quadrant pain (principal); I10 Essential (primary) hypertension; Z79.899 Other long term (current) drug therapy; Z79.82 Long term (current) use of aspirin
CPT/HCPCS: 36415; 74177; 80053; 81003; 82150; 83690; 85025; 96361; 96374; 96375; 99285; J2270; J2405; J7030; Q9967

== ENCOUNTER 2020-09-24 07:38 | Emergency (ER) | payer MEDICAID ==
[~2020-09-24] VITALS: Ht 157.5 cm; Wt 83.7 kg
[2020-09-24 07:50] VITALS: BP 136/77
--- NOTE | 2020-09-24 07:55 | NUR ---
PATIENT AMBULATED TO BED 3. HANDED ON URINE CUP.
--- NOTE | 2020-09-24 08:02 | NUR ---
BIBS from home c/o abdominal pain x 2 days, 09/01 pain, pointing to RLQ NKDA, PMH denies, Palauan speaking only A, A, Ox4, crying, mumbling difficult to understand Resp even and unlabored, in NAD, HOB elevated, VVS Moving all exts w/o difficulty Awaiting evaluation by MD, will continue to monitor
--- NOTE | 2020-09-24 08:10 | NUR ---
Dr. Ruiz at bedside to evaluate patient
[2020-09-24] MEDS ORDERED: MORPHINE SULFATE 4 MG/ML SYR IVP ONE (08:20)
[2020-09-24] MEDS ORDERED: ONDANSETRON 4 MG/2 ML VIAL IVP ONE (08:20)
--- NOTE | 2020-09-24 08:25 | NUR ---
IV started LAC #20g and labs drawn and given to cable strander
--- NOTE | 2020-09-24 08:40 | NUR ---
Urine sample collected, dipped and sent to lab
--- NOTE | 2020-09-24 08:41 | NUR ---
Patient medicated for nausea and pain
[2020-09-24 08:45] LABS: BASOPHILS % (AUTO) 0.4 % (0.0-2.0); EOSINOPHILS # (AUTO) 0.3 K/uL (0-0.4); EOSINOPHILS % (AUTO) 3.6 % (0.0-4.0); HEMATOCRIT 38.9 % (36-48); LYMPHOCYTES # (AUTO) 1.1 K/uL (2.5-16.5); LYMPHOCYTES % (AUTO) 14.5 % (20.5-51.1); MEAN CORPUSCULAR HEMOGLOBIN 30 pg (27-31); MEAN CORPUSCULAR HGB CONC 33 g/dL (33-37); MEAN CORPUSCULAR VOLUME 90.5 fL (80-94); MONOCYTES # (AUTO) 0.4 K/uL (0.8-1.0); MONOCYTES % (AUTO) 4.9 % (1.7-9.3); NEUTROPHILS # (AUTO) 5.9 K/uL (1.8-7.7); NEUTROPHILS % (AUTO) 76.6 % (42.2-75.2); PLATELET COUNT (AUTO) 342 K/uL (140-450); RED BLOOD CELL COUNT(AUTO) 4.29 MIL/uL (4.20-5.40); RED CELL DISTRIBUTION WIDTH 13.6 % (11.6-13.7); WHITE BLOOD COUNT (AUTO) 7.6 K/uL (4.8-10.8)
--- NOTE | 2020-09-24 08:45 | NUR ---
US at bedside to preform abdominal scan
[2020-09-24 09:01] LABS: ANION GAP 12.6 (8-16); CARBON DIOXIDE 28.9 mmol/L (21-32); POTASSIUM 3.5 mmol/L (3.5-5.1)
[2020-09-24 09:07] LABS: ALBUMIN 4.3 g/dL (3.4-5.0); TOTAL BILIRUBIN 0.4 mg/dL (0.0-1.0)
[2020-09-24 09:50] LABS: APPEARANCE,URINE HAZY (CLEAR); BILIRUBIN,URINE NEGATIVE (NEGATIVE); BLOOD, URINE NEGATIVE (NEGATIVE); COLOR,URINE YELLOW (YELLOW); LEUKOCYTE ESTERASE ,URINE TRACE (NEGATIVE); NITRITE, URINE NEGATIVE (NEGATIVE); UGLUCOSE NEGATIVE (NEGATIVE)
[2020-09-24 10:16] LABS: RBC,URINE 0-5 /HPF (0-5); WBC,URINE 0-5 /HPF (0-5)
[2020-09-24] MEDS ORDERED: LORazepam 2 MG/ML VIAL IVP ONE (11:00)
--- NOTE | 2020-09-24 12:49 | NUR ---
IV D/C 2x2 gauze placed to IV site
[2020-09-24 12:50] VITALS: BP 129/81
--- NOTE | 2020-09-24 12:51 | NUR ---
Patient discharged with v/s stable. Written and verbal after care instructions given and explained. Patient alert, oriented and verbalized understanding of instructions. Ambulatory with steady gait. All questions addressed prior to discharge. ID band removed. Patient advised to follow up with PMD. Rx of [place] and zofran given. Patient educated on indication of medication including possible reaction and side effects. Opportunity to ask questions provided and answered. Pt states that her family is working and will take the bus home. Pt was provided with bus pass.
== END 2020-09-24 12:51 | disposition home or self-care (01) ==
LOC: MED 07:38
DX: K80.20 Calculus of gallbladder without cholecystitis without obstruction (principal); I10 Essential (primary) hypertension; Z79.899 Other long term (current) drug therapy; Z79.82 Long term (current) use of aspirin
CPT/HCPCS: 36415; 74176; 76705; 80053; 81001; 83690; 85025; 96374; 96375; 99285; J2060; J2270; J2405; Q0092

== ENCOUNTER 2022-03-20 09:34 | Emergency (ER) | payer MEDICAID ==
[~2022-03-20] VITALS: Ht 151.4 cm; Wt 83.1 kg
[~2022-03-20 09:34] MED LIST changes: -ASPI-1822 PO; -CEPH500C16 PO; +HYDR-4004 PO; -INUL1CTB PO; -MIRABULK PO; -ORE25 PO
[2022-03-20 09:50] VITALS: BP 155/92
--- NOTE | 2022-03-20 09:54 | NUR ---
PATIENT AMBULATED TO BED 5.
--- NOTE | 2022-03-20 10:00 | NUR ---
67 Y/O FEMALE BIB SELF C/O ABDOMINAL PAIN X4DAYS. PAIN IS NON-RADIATING. PT STATES SHE HAS HAD NAUSEA,VOMITING AND DIARRHEA. ABDOMEN IS TENDER TO PALPATION. PT. DENIES SOB, CHEST PAIN, RUST. PT IS ALERT AND ORIENTED X4. BED IN LOWEST POSITION. BED RAILX1. PMH:HYPERTENSION, HDL MEDS: DENIES
[2022-03-20] MEDS ORDERED: ONDANSETRON 4 MG TAB PO ONE (10:45)
[2022-03-20] MEDS ORDERED: MORPHINE SULFATE 4 MG/ML SYR IVP ONE (10:45)
[2022-03-20 11:35] LABS: APPEARANCE,URINE SL CLOUDY (CLEAR); BILIRUBIN,URINE 1+ (NEGATIVE); BLOOD, URINE NEGATIVE (NEGATIVE); COLOR,URINE YELLOW (YELLOW); LEUKOCYTE ESTERASE ,URINE NEGATIVE (NEGATIVE); NITRITE, URINE NEGATIVE (NEGATIVE); UGLUCOSE NEGATIVE (NEGATIVE)
[2022-03-20 11:48] LABS: ALBUMIN 3.9 g/dL (3.4-5.0); ANION GAP 14.6 (8-16); CARBON DIOXIDE 26.4 mmol/L (21-32); CREATININE 0.9 mg/dL (0.6-1.3); TOTAL BILIRUBIN 0.5 mg/dL (0.0-1.0)
[2022-03-20 11:55] LABS: BASOPHILS # (AUTO) 0.1 K/uL (0.00-0.22); BASOPHILS % (AUTO) 0.5 % (0.0-2.0); EOSINOPHILS % (AUTO) 0.4 % (0.0-4.0); HEMATOCRIT 38.6 % (36-48); HEMOGLOBIN 12.8 g/dL (12.0-16.0); LYMPHOCYTES # (AUTO) 1.8 K/uL (2.5-16.5); LYMPHOCYTES % (AUTO) 17.2 % (20.5-51.1); MEAN CORPUSCULAR HEMOGLOBIN 30 pg (27-31); MEAN CORPUSCULAR HGB CONC 33 g/dL (33-37); MEAN CORPUSCULAR VOLUME 89.6 fL (80-94); MONOCYTES # (AUTO) 0.7 K/uL (0.8-1.0); MONOCYTES % (AUTO) 6.9 % (1.7-9.3); NEUTROPHILS # (AUTO) 7.8 K/uL (1.8-7.7); PLATELET COUNT (AUTO) 457 K/uL (140-450); RED BLOOD CELL COUNT(AUTO) 4.31 MIL/uL (4.20-5.40); RED CELL DISTRIBUTION WIDTH 14.2 % (11.6-13.7); WHITE BLOOD COUNT (AUTO) 10.4 K/uL (4.8-10.8)
[2022-03-20] MEDS ORDERED: ONDA-188 PO (13:15)
[2022-03-20] MEDS ORDERED: FAMO-90 PO (13:15)
[2022-03-20] MEDS ORDERED: MAG355OR2 PO (13:15)
[2022-03-20 13:36] LABS: RBC,URINE 0-5 /HPF (0-5)
--- NOTE | 2022-03-20 13:51 | NUR ---
PT IS REFUSING TO LEAVE UPON DISCHARGE. PT IS SAYING SHE HAS "NOWHERE TO GO". DR. BURNS MADE AWARE. INTERLOCKING PAVEMENT INSTALLER CONTACTED.
--- NOTE | 2022-03-20 14:18 | NUR ---
ELENA WITH TRAFFIC COURT MAGISTRATE AT BEDSIDE EVALUATING PT
[2022-03-20 15:04] VITALS: BP 136/77
--- NOTE | 2022-03-20 15:06 | NUR ---
Patient discharged with v/s stable. Written and verbal after care instructions given and explained. Patient alert, oriented and verbalized understanding of instructions. Ambulatory with steady gait. All questions addressed prior to discharge. ID band removed. Patient advised to follow up with PMD. Rx of FAMOTIDINE, MAALOX, ZOFRAN given. Patient educated on indication of medication including possible reaction and side effects. Opportunity to ask questions provided and answered.
--- NOTE | 2022-03-20 15:10 | NUR ---
BI MANAGER PROVIDED RESOURCES. PT WILL USE UBER PROVIDED, GOING TO [facility].
--- NOTE | 2022-03-20 16:00 | NUR ---
DC PLANNING PATIENT IS A 67-YEAR-OLD FEMALE WHO CAME IN THE [facility]/ED 03/20/2022 DUE TO ABDOMINAL PAIN. (PATIENT IS NIUEAN SPEAKING ONLY). SW MET WITH PATIENT AT BEDSIDE TO DISCUSS AND GATHER HER COLLATERAL INFORMATION. PATIENT REPORTED BEEN HOMELESS AND LIVING IN THE STREETS FOR BOUT 2 YEARS. PATIENT'S APPEARANCE WAS CLEAN, WITH GOLD JEWELRY (EARING, RINGS,AND BRACELETS IN HER HANDS. PATIENT ALSO PRESENTED WELL NOURISH AND WITH 2 SMALL CLEAN HANDBAGS. SW DISCUSSED HER SITUATION AND LACK OF RESOURCES AND PROVIDED PATIENT WITH RESOURCES TO EMERGENCY AND TRANSITIONAL SHELTERS INFORMATION AND LOCATIONS IN THE AREAS OF [place] AND [place] PER HER REQUEST. PATIENT STATED THAT SHE DID NOT HAVE ANY CONTACT INFORMATION AND NO PLACE TO STAY TONIGHT THEREFORE; SHE WANTED TO STAY IN THE HOSPITAL. SW EXPLAINED TO PATIENT THAT IF SHE IS IN MEDICAL NEED SHE WILL BE ADMITTED IF SHE MEET CRITERIA TO BE HOSPITALIZED HOWEVER; IF SHE IS NOT MEETING CRITERIA AND DOCTOR DISCHARGES HER SHE WILL HAVE TO FIND [facility] IN ONE OF THE PLACES FROM THE LIST SHE WAS PROVIDED. PATIENT DID NOT AGREED AND WAS UPSET THAT SHE WILL NOT BE ADMITTED FOR HOUSING ISSUES. SW EXPLAINED TO PATIENT ABOUT EMERGENCY RESOURCES EXPLAINED THAT SHE WILL NEED TO APPLY WITH [facility] AND PROVIDED HER WITH A LIST OF PLACES AND PHONE NUMBERS TO CALL TO EVEN APPLY OVER THE PHONE TO GET SERVICES, SUCH FOOD [employer], CLOTHING, TRANSPORT AND EMERGENCY VOUCHERS FOR MOTELS. PATIENT FINALLY UNDERSTOOD AND TOOK INFORMATION, THEN STATED THAT SHE WANTED TO GO TO [facility], SW INFORMED EKATERINA MENA AND SET UP TRANSPORT FOR PATIENT. DURING DISCUSSION AND COLLATERAL INFORMATION GATHERING PATIENT REPORTED THAT SHE IS BEEN STAYING WITH A FRIEND BUT NO LONGER SPEAKS TO THEM AND NOW HAS NO ONE. PATIENT REPORTED NOT HAVING AN EMERGENCY CONTACT AND DECLINED ADVANCE DIRECTIVES INFORMATION FORMS PROVIDED BY THESE STAVE LOG RIPSAW OPERATOR. PATIENT REPORTED NOT HAVING ANY ISSUES GETTING OR TAKING MEDICATIONS FROM THE [facility] IN [place] BECAUSE THAT IS THE AREA SHE IS FAMILIAR. PATIENT STATED NOT HAVING OR NEEDING DME AND BEEN ACTIVE AND INDEPENDENT TO AMBULATE. PATIENT REPORTED GOING TO A CLINIC IN [place] WHEN SHE DO NOT FEEL WELL HOWEVER; SHE HAS NOT SEEN A DOCTOR FOR OVER 2 YEARS. EVER DISCUSSED WITH PATIENT THE IMPORTANCE OF GOING TO [facility] AND GET ASSISTANCE WITH MEDI-JHONNY AND HOUSING WELL MAKING SURE SHE SEES A DOCTOR SOON TO FOLLOW UP WITH HER CARE. PATIENT THANKED HER FOR THE INF. SW WILL FOLLOW UP NEEDED. AT ABOUT 16:00 PATIENT RETURNED TO ER WITH TRANSPORT PROVIDED TO HER DUE TO THE [facility]. THEREFORE; EVER ASSISTED PATIENT WITH MAKING CALLS TO DIFFERENT SHELTERS AND GETTING HER TO HAVE AN INTAKE FOR TOMORROW AT [facility] IN [place] AT [address] [facility] [id number] AT SPOKE TO ROCHELLE WHO WILL SEE PATIENT TOMORROW AT ABOUT 10:30 AM FOR AN INTAKE. PATIENT AGREED TO ATTEND AND WILL ALSO BE GOING TO [facility] FOR ADDITIONAL ASSISTANCE. PATIENT STATED THAT FOR TONIGHT SHE WILL BE GOING TO A FRIENDS HOME TO SEE IF THEY ALLOWED HER TO STAY. PATIENT GET UP AND LEFT ED. ANITA. EVER WILL FOLLOW UP NEEDED.
== END 2022-03-20 15:06 | disposition home or self-care (01) ==
LOC: MED 09:34
DX: K80.50 Calculus of bile duct without cholangitis or cholecystitis without obstruction (principal); I10 Essential (primary) hypertension; Z79.899 Other long term (current) drug therapy
CPT/HCPCS: 36415; 74176; 80053; 81001; 83690; 85025; 87086; 96374; 99284; J2270; Q0162